=== PATIENT | male | born 1950 | race Caucasian/White ===

== ENCOUNTER → 2016-12-08 | Outpatient (CLI) | payer BC ==
[~2016-12-08] MED LIST: COZAAR100 MG PO; MULTI VITAMIN1 EACH PO; PERCOCET5/325 PO
--- NOTE | ~2016-12-08 | CT57 ---
[facility] A Service of [facility] & [facility] RADIOLOGY TEXT RESULTS PATIENT: MONIQUE MANDUJANO [facility] UNIT #: [id number] AGE: [address]: Rudy Quiroga SEX: M ORDER DR: [id number] [facility] [address] [place], [place] [address] [id number] O MR#: [id number] Acc #: [id number] NAME: MONIQUE MANDUJANO : 1950 SEX: M STUDY DATE/TIME: 12/08/2016 08:45 UNIT: [facility] ROOM: STUDY DESCRIPTION: CT Chest Wo Cont Attending Physician: Rudy Quiroga M.D. Referring Physician: Rudy Quiroga M.D. Ordering Physician: Rudy Quiroga M.D. Primary Care Physician: Christian Alford M.D. MEDICAL IMAGING REPORT This report is preliminary unless electronic signature is present EXAM CT chest without contrast, 12/08/2016, 0845 hours. CLINICAL HISTORY 66-year-old man with biopsy-proven interstitial lung disease diagnosed 1 year ago for followup. No current chest complaints. COMPARISON 07/27/[address] and interval chest x-rays. TECHNIQUE Helical noncontrasted routine images were obtained from the thoracic inlet through the adrenal glands. Patient then underwent high-resolution protocol study with 1 mm thick intervals and 10 mm intervals at full inspiration in the supine position. Additional supine expiratory phase images were obtained at the arch, linda and lung bases. Patient was then turned to the prone position for similar high-resolution images through the lung bases only. No contrast was administered. Total exam DLP 656 mGy-cm. This CT exam was performed with one or more of the following radiation dose reduction techniques: automatic exposure control, adjustment of mA and/or kV according to patient size, and iterative reconstruction. FINDINGS Images through the thoracic inlet demonstrate no thyroid lesion or supraclavicular adenopathy. There is again demonstrated fusiform ascending aortic aneurysm measuring 4.9 cm, previously 4.8 cm. There are diffuse coronary calcifications. Cardiac chambers and pericardium are normal. There is no adenopathy, pericardial or pleural fluid. The esophagus is normal. The lungs demonstrate a suture line in the posterior right upper lobe likely from open biopsy. There is no evidence of residual interstitial STS. [facility] A Service of [facility] & [facility] RADIOLOGY TEXT RESULTS PATIENT: MONIQUE MANDUJANO LOCATION: [facility] : 54 UNIT #: [id number] AGE: [address]: Rudy Quiroga SEX: M ORDER DR: change. There is a calcified granuloma in the left lung base unchanged. There is no airspace density or bronchiectasis. High-resolution images demonstrate mild emphysematous change. There is no evidence of interstitial lung disease. IMPRESSION 1. The lungs are now clear. Previous bilateral subpleural interstitial changes have completely resolved. There is a suture line in the right upper lung posteriorly at site of prior open biopsy. 2. Stable calcified granuloma at the left base. 3. Stable fusiform ascending aortic aneurysm measuring up to 4.9 cm, previously 4.8 cm. Dictated by... Sarah Crocker M.D. THIS IS AN ELECTRONICALLY VERIFIED REPORT Sarah Crocker M.D. at 12/08/2016 1:00 PM SHIELA/jt TD: 12/08/2016 12:17 JOB #: [id number] MEDICAL IMAGING REPORT Page 1 of 1 COPY
== END | disposition home or self-care (01) ==
LOC: CCAT 08:06
DX: J84.9 Interstitial pulmonary disease, unspecified (principal); J84.10 Pulmonary fibrosis, unspecified; I71.2 Thoracic aortic aneurysm, without rupture; Z98.890 Other specified postprocedural states
CPT/HCPCS: 71250

== ENCOUNTER → 2017-05-11 | Outpatient (CLI) | payer MEDICARE ==
--- NOTE | ~2017-05-11 | CT113 ---
[facility] A Service of [facility] & [facility] RADIOLOGY TEXT RESULTS PATIENT: MONIQUE MANDUJANO [facility] 54 UNIT #: [id number] AGE: [address]: Roc Knapp MD SEX: M ORDER DR: [id number] [place] [address] [place], [place] [address] [id number] O MR#: [id number] Acc #: [id number] NAME: MONIQUE MANDUJANO : 1950 SEX: M STUDY DATE/TIME: 05/11/2017 8:39 UNIT: [facility] ROOM: STUDY DESCRIPTION: CT Sinuses Wo Contrast Attending Physician: Roc Knapp M.D. Referring Physician: Roc Knapp M.D. Ordering Physician: Roc Knapp M.D. Primary Care Physician: Christian Alford M.D. MEDICAL IMAGING REPORT This report is preliminary unless electronic signature is present EXAM CT of the sinuses without contrast HISTORY Pain. The patient has chronic sinusitis with sinus pain hyposmia and septal deviation. Symptoms of chronic sinusitis for a year with sinus pain for a year. TECHNIQUE CT paranasal sinuses obtained in the axial plane followed by sagittal and coronal reconstructed images. This CT exam was performed with one or more of the following radiation dose reduction techniques: automatic exposure control, adjustment of mA and/or kV according to patient size, and iterative reconstruction. COMPARISON No prior. FINDINGS The mastoid air cells are clear. There is mucosal thickening at the bilateral inferior frontal sinuses with partial occlusion of the bilateral frontal recesses. The fovea ethmoidalis region is fairly symmetric. Nasal septum is deviated towards the left side inferiorly. There is mucosal thickening throughout the bilateral anterior and posterior ethmoid air cells. Mild mucosal thickening in the right maxillary sinus. 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 The left ostiomeatal unit is occluded by mucosal disease and again either a Lazara's cell or large anterior-inferior ethmoid bulla that measures about 7 x 5 mm. There is mild mucosal thickening in the left maxillary sinus. At this time there is no air-fluid level. There is no patti bone destruction though there is probably some demineralization of STS. [facility] A Service of [facility] & [facility] RADIOLOGY TEXT RESULTS PATIENT: MONIQUE MANDUJANO [facility] 54 UNIT #: [id number] AGE: [address]: Roc Knapp MD SEX: M ORDER DR: the infundibuli. The sphenoid sinuses are essentially clear. IMPRESSION Paranasal sinus disease with details provided above. There is occlusion of the bilateral frontal recesses and bilateral ostiomeatal units with mucosal thickening in the frontal sinuses, ethmoid air cells and maxillary sinuses bilaterally. There is no patti bone destruction or air-fluid level at this time. Anatomic variations include large bilateral Lazara cells and/or anterior-inferior ethmoid bulla which contribute to the occlusion of the bilateral ostiomeatal units. There is additionally mucosal thickening along the infundibuli bilaterally. There is some leftward septal deviation inferiorly. Dictated by... Celia Logan M.D. THIS IS AN ELECTRONICALLY VERIFIED REPORT Celia Logan M.D. at 05/15/2017 4:53 PM SAC/to TD: 05/12/2017 22:32 JOB #: [id number] MEDICAL IMAGING REPORT Page 1 of 1 COPY
== END | disposition home or self-care (01) ==
LOC: CCAT 07:51
DX: J32.9 Chronic sinusitis, unspecified (principal); J34.2 Deviated nasal septum; R43.2 Parageusia
CPT/HCPCS: 70486